=== PATIENT | female | born 1990 | race Caucasian/White ===

== ENCOUNTER 2017-07-15 14:41 | Emergency (ER) | payer MEDICAID ==
[2017-07-15] MEDS ORDERED: Sodium Chloride 0.9% 500 ML IV STA (15:12)
--- NOTE | 2017-07-15 15:14 | ED PDOC ---
Arrival/HPI - General Chief Complaint: Female Genitourinary Time Seen by Provider: 07/15/17 15:02 Historian: Patient - History of Present Illness Narrative History of Present Illness (Text): 07/15/17 1515 pt p/w + ~ 1 week onset of intermittent vaginal spotting/bleeding; pt states vaginal bleeding was severe 1 week ago and since then has been spotting off and on; pt states her LMP was ~ 2/2; pt states lower pelvic cramps; pt states her pelvic cramps worsened today; pt states no fever/chills/sweats, no cp/sob/ palpitations, no upper abd pain, + intermittent nausea/vomiting, + mild dizziness/lightheadedness, no urinary/bowel changes, no fall/trauma/sick contact , no travel; pt denied LOC; pt denied heard/vision changes; pt denied other complaints, pt is here for further eval. LMP: 2/2 Time/Duration: 1 week (+ vaginal bleeding with pelvic cramps) Symptom Onset: Sudden Symptom Course: Worsening Quality: Cramping Severity Level: 8, Severe Activities at Onset: Rest Context: Home Past Medical History - Provider Review Nursing Documentation Reviewed: Yes - Travel History Have you recently traveled outside [place] w/in the past 3 mons?: No - Past History Past History: No Previous - Infectious Disease Hx of Infectious Diseases: None - Reproductive Menopause: No Currently : Unknown - Psychiatric Hx Psychophysiologic Disorder: No Hx Substance Use: No Family/Social History - Physician Review Nursing Documentation Reviewed: Yes Family/Social History: No Known Family HX Smoking Status: Never Smoked Hx Alcohol Use: No Hx Substance Use: No Hx Substance Use Treatment: No Allergies/Home Meds Allergies/Adverse Reactions: Allergies No Known Allergies Allergy (Verified 07/15/17 14:41) Review of Systems - Review of Systems Constitutional: Normal Eyes: Normal ENT: Normal Respiratory: Normal Cardiovascular: Normal Gastrointestinal: Other (abd/pelvic cramps). absent: Nausea, Vomiting Genitourinary Female: Vaginal Bleeding Musculoskeletal: Normal Skin: Normal Neurological: Dizziness Endocrine: Normal Hemo/Lymphatic: Normal Psychiatric: Normal Physical Exam Vital Signs Reviewed: Yes Vital Signs Temp Pulse Resp BP Pulse Ox 07/15/17 18:21 72 17 111/75 100 07/15/17 14:43 98.5 F 74 16 106/71 98 Temperature: Afebrile Blood Pressure: Normal Pulse: Regular Respiratory Rate: Normal Appearance: Positive for: Well-Appearing, Non-Toxic, Uncomfortable, Other ( resting in bed, alert/awake, uncomfortable, NAD, cooperative, follows command with ease). No: Comfortable Pain Distress: None Mental Status: Positive for: Alert and Oriented X 3 - Systems Exam Head: Present: Atraumatic, Normocephalic Pupils: Present: PERRL, Other (no nystagmus, no photophobia, sclera anicteric, visual field intact b/l) Extroacular Muscles: Present: EOMI Conjunctiva: Present: Normal Ears: Present: Normal Mouth: Present: Moist Mucous Membranes, Normal Teeth, Other (no drooling/stridor , uvula/tongue are midline) Pharnyx: Present: Normal. No: ERYTHEMA Nose (External): Present: Atraumatic Nose (Internal): Present: Normal Inspection Neck: Present: Normal Range of Motion, Trachea Midline. No: Meningeal Signs, MIDLINE TENDERNESS, JVD Respiratory/Chest: Present: Clear to Auscultation, Good Air Exchange, Other ( CTA b/l, no w/r/r, no accessory muscle use noted) Cardiovascular: Present: Regular Rate and Rhythm, Normal S1, S2. No: Murmurs Abdomen: Present: Normal Bowel Sounds, Other (mild suprapubic tenderness, no guarding/rigidity/masses, no rebound; no leong's sign, no mcburney's point tenderness, well nourished female) Genitourinary/Pelvic Exam: Present: Normal External Genitalia, Cervical os Closed. No: Vaginal Discharge, Vaginal Bleeding, Cervical Motion Tendernes Back: Present: Normal Inspection. No: CVA Tenderness, Midline Tenderness Upper Extremity: Present: Normal Inspection, Normal ROM, NORMAL PULSES, Neurovascularly Intact, Capillary Refill < 2s Lower Extremity: Present: Normal Inspection, NORMAL PULSES, Normal ROM, Neurovascularly Intact, Capillary Refill < 2 s, Other (+ ambulatory) Neurological: Present: GCS=15, CN II-XII Intact Skin: Present: Warm, Dry, Normal Color, Other (cap refill < 1sec, no ulcerations , no petechiae, no lesions/pallor) Psychiatric: Present: Alert, Oriented x 3 Medical Decision Making ED Course and Treatment: 07/15/17 15:13 Impression: pelvic cramps; vaginal bleeding i have consider all the differential diagnosis regarding pt's chief medical complaints/clinical findings, including but are not limited to: pelvic cramps; vaginal bleeding A/P: pelvic cramps; vaginal bleeding - labs - iv - us - observe - supportive care 07/15/17 15:30 pt is doing well currently pt is awaiting blood type/U/S results 18:30 pt is made aware of her medical results pt is encouraged fluids pt is encouraged NO SEX, NO heavy lifting pt is encouraged to f/u with OB as soon as possible pt will f/u as directed pt will be discharged home. Re-evaluation Time: 18:23 Reassessment Condition: Improved - Lab Interpretations Lab Results: 07/15/17 15:20 07/15/17 15:20 Lab Results 07/15/17 17:20: Blood Type Confirm A NEGATIVE 07/15/17 15:20: Beta HCG, Quant [id number] H 07/15/17 15:20: Sodium 143, Potassium 3.0 L, Chloride 110 H, Carbon Dioxide 20 L , Anion Gap 16, BUN 9, Creatinine 0.4 L, Est GFR ( Amer) > 60, Est GFR ( Non-Af Amer) > 60, Random Glucose 102, Calcium 7.8 L, Lipase 51 07/15/17 15:20: WBC 8.7, RBC 3.35 L, Hgb 9.7 L, Hct 28.4 L, MCV 84.8, MCH 29.0, MCHC 34.2, RDW 13.3, Plt Count 192, MPV 12.2 H, Gran % 64.0, Lymph % (Auto) 29.8 , [place] % (Auto) 5.0, Eos % (Auto) 1.0 L, Baso % (Auto) 0.2, Gran # 5.54, Lymph # (Auto) 2.6, [place] # (Auto) 0.4, Eos # (Auto) 0.1, Baso # (Auto) 0.02 07/15/17 15:20: Urine Color Yellow, Urine Appearance Turbid, Urine pH 6.0, Ur Specific [employer] >= 1.030, Urine Protein Negative, Urine Glucose (UA) Negative, Urine Ketones 15 H, Urine Blood Large H, Urine Nitrate Negative, Urine Bilirubin Negative, Urine Urobilinogen 0.2, Ur Leukocyte Esterase Moderate H, Urine RBC 1 - 3, Urine WBC 10 - 15, Ur Epithelial Cells 6 - 8, Urine Bacteria Few 07/15/17 15:00: Blood Type A NEGATIVE, Antibody Screen Negative, BBK History Checked No verified bt I have reviewed the lab results: Yes Interpretation: Abnormal lab values (decr K, decr H/H; + UTI?; BLOOD TYPE A-) - RAD Interpretation Narrative RAD Interpretations (Text): Report Date : 07/15/2017 18:04:50 Procedure: OB Transvaginal Ultrasound Dictator : Pritesh Valdez MD FINDINGS: UTERUS: The uterus is anteverted measuring approximately 8.1 x 6.9 x 6.4 cm. Cervix measures 3.7 cm and appears closed. Single living intrauterine gestation with measurements as follows: Gestational sac: MSD = 2.2 cm = 6 weeks 6 days Yolk sac: 0.18 cm pole: CRL = 0.65 cm = 6 weeks 4 days Heart motion: 124 BPM Average ultrasound age = 6 weeks 5 days 0 weeks 3 days [facility] based on average ultrasound age = 1103/05/2020. There is a small approximately 1.7 x 1.6 x 1.6 cm subchorionic hemorrhage. ENDOMETRIUM: As above. CERVIX: As above. RIGHT OVARY: Measures 3.4 x 2.3 x 3.1 cm. No solid mass. Normal flow. LEFT OVARY: Measures 2.5 x 1.4 x 2.5 cm. No solid mass. Normal flow. FREE FLUID: No significant free fluid noted. OTHER FINDINGS: None. IMPRESSION: Single living intrauterine gestation estimated at approximately 6 weeks 5 days 0 weeks 3 days. Heart rate detected at 1:24 BPM. Small subchorionic hemorrhage as above. Radiology Orders: 07/15/17 15:41 OB TRANSVAGINAL [US] Stat Surface Boss: Radiologist - Medication Orders Current Medication Orders: Discontinued Medications Acetaminophen (Tylenol 325mg Tab) 650 mg PO STAT STA Stop: 07/15/17 15:12 Last Admin: 07/15/17 15:41 Dose: 650 mg MAR Pain/Vitals Document 07/15/17 15:41 SF (Rec: 07/15/17 15:41 SF [id number]) Pain Reassessment Is This A Pain ReAssessment? Yes Sleep Is patient sleeping during reassessment? No Presence of Pain Presence of Pain Yes Sodium Chloride (Sodium Chloride 0.9%) 500 mls @ 999 mls/hr IV .Q31M STA Stop: 07/15/17 15:42 Last Admin: 07/15/17 15:30 Dose: 999 mls/hr eMAR Start Stop Document 07/15/17 15:30 SF (Rec: 07/15/17 15:35 [id number] Intravenous Solution Start Date 07/15/17 Start Time 15:30 End Date 07/15/17 End time 16:00 Total Infusion Time 30 Nitrofurantoin Macrocrystals (Macrobid) 100 mg PO ONCE ONE PRN Reason: Protocol Stop: 07/15/17 18:07 Last Admin: 07/15/17 19:09 Dose: 100 mg Ondansetron HCl (Zofran Inj) 4 mg IVP STAT STA Stop: 07/15/17 15:13 Last Admin: 07/15/17 15:41 Dose: 4 mg IVP Administration Document 07/15/17 15:41 SF (Rec: 07/15/17 15:41 [email or web address] Charges for Administration # of IVP Administrations 1 Disposition/Present on Arrival - Present on Arrival Any Indicators Present on Arrival: No History of DVT/PE: No History of Uncontrolled Diabetes: No Urinary Catheter: No History of Decub. Ulcer: No History Surgical Site Infection Following: None - Disposition Have Diagnosis and Disposition been Completed?: Yes Diagnosis: Threatened in first trimester, Anemia, UTI (urinary tract infection) during , Hypokalemia, Nausea and vomiting during Disposition: HOME/ ROUTINE Disposition Time: 18:24 Patient Plan: Discharge Patient Problems: Current Active Problems Problem Status Onset Threatened in first trimester Acute Anemia Acute UTI (urinary tract infection) during Acute Hypokalemia Acute Nausea and vomiting during Acute Condition: STABLE Discharge Instructions (ExitCare): Hypokalemia, Threatened Miscarriage, Urinary Tract Infection, Adult (DC), High Potassium Diet, Bleeding With Print Language: MALAY Additional Instructions: Make sure to see your doctor in 1-2 days DRINK PLENTY OF FLUIDS NO SEX NO HEAVY LIFTING take your medications as prescribed RETURN TO ED IF worse pain, cant breath, persistent vomiting, high fever >101- 102 for hours, altered behavior, unable to urinate, heavy/persistent bleeding, passing out, chest pain, or other medical emergencies Prescriptions: Metoclopramide HCl [Reglan] 10 mg PO TID PRN #30 tablet PRN Reason: Nausea/Vomiting Nitrofurantoin Macrocrystals [Macrobid] 100 mg PO BID #13 cap No122/Iron/Folic Acid [ Multi Tablet] 1 each PO DAILY #30 tablet Referrals: Reji Boyer MD [Primary Care Provider] - Follow up with primary [facility] [Outside] - [facility] with [facility] [Outside] - Follow up with primary Forms: [employer] (Khmer)
[2017-07-15 15:28] LABS: URINE BILIRUBIN NEGATIVE (NEGATIVE); URINE BLOOD LARGE (NEGATIVE); URINE GLUCOSE (UA) NEGATIVE (NEGATIVE); URINE LEUKOCYTE ESTERASE MODERATE Leu/uL (NEGATIVE); URINE PROTEIN NEGATIVE mg/dL (<30 mg/dL); URINE UROBILINOGEN 0.2 E.U./dL (<1 E.U./dL)
[2017-07-15 15:29] LABS: URINE APPEARANCE TURBID (CLEAR); URINE COLOR YELLOW (YELLOW)
[2017-07-15 15:32] LABS: URINE BACTERIA FEW (NEG)
[2017-07-15 15:57] LABS: BASO # 0.02 K/mm3 (0.0-2.0); BASO % 0.2 % (0.0-3.0); EOS # 0.1 (0.0-0.7); GRAN # 5.54 (1.4-6.5); HEMOGLOBIN 9.7 g/dL (12.0-16.0); LYMPH # 2.6 (1.2-3.4); LYMPH % 29.8 % (22.0-35.0); MEAN CELL VOLUME 84.8 fl (80.0-105.0); MEAN CORPUSCULAR HGB CONC 34.2 g/dl (31.0-37.0); MEAN PLATELET VOLUME 12.2 fl (7.0-11.0); MONO # 0.4 (0.1-0.6); RBC 3.35 10^6/uL (3.5-6.1); RED CELL DISTRIBUTION WIDTH 13.3 % (11.5-14.5); WHITE BLOOD COUNT 8.7 10^3/ul (4.5-11.0)
[2017-07-15 16:19] LABS: BLOOD UREA NITROGEN 9 mg/dL (7-21); CALCIUM 7.8 mg/dL (8.4-10.5); GFR AFRICAN-AMERICAN > 60; GFR NON-AFRICAN AMERICAN > 60; LIPASE 51 U/L (23-300)
--- NOTE | 2017-07-15 18:07 | US ---
HISTORY: Severe pelvic cramping and vaginal bleeding bleed; LMP 05/28 COMPARISON: No prior study available for comparison TECHNIQUE: Transabdominal transvaginal sonographic evaluation of pelvis performed. FINDINGS: UTERUS: The uterus is anteverted measuring approximately 8.1 x 6.9 x 6.4 cm. Cervix measures 3.7 cm and appears closed. Single living intrauterine gestation with measurements as follows: Gestational sac: MSD = 2.2 cm = 6 weeks 6 days Yolk sac: 0.18 cm pole: CRL = 0.65 cm = 6 weeks 4 days Heart motion: 124 BPM Average ultrasound age = 6 weeks 5 days 0 weeks 3 days [place] based on average ultrasound age = 1103/05/2020. There is a small approximately 1.7 x 1.6 x 1.6 cm subchorionic hemorrhage. ENDOMETRIUM: As above. CERVIX: As above. RIGHT OVARY: Measures 3.4 x 2.3 x 3.1 cm. No solid mass. Normal flow. LEFT OVARY: Measures 2.5 x 1.4 x 2.5 cm. No solid mass. Normal flow. FREE FLUID: No significant free fluid noted. OTHER FINDINGS: None. IMPRESSION: Single living intrauterine gestation estimated at approximately 6 weeks 5 days 0 weeks 3 days. Heart rate detected at 1:24 BPM. Small subchorionic hemorrhage as above.
[2017-07-15 18:22] VITALS: RESP 17; O2SAT 100
[2017-07-15 20:32] VITALS: BP 124/69; PULSE 74; TEMP 98.2
== END 2017-07-15 20:38 | disposition home or self-care (01) ==
LOC: ED 14:41
DX: O20.0 Threatened abortion (principal); O99.011 Anemia complicating pregnancy, first trimester; O23.41 Unspecified infection of urinary tract in pregnancy, first trimester; O21.1 Hyperemesis gravidarum with metabolic disturbance; Z3A.01 Less than 8 weeks gestation of pregnancy
CPT/HCPCS: 76817; 80048; 81001; 83690; 84702; 85025; 86850; 86900; 87086; 96374; 99285; J2405; J2792; J7040